=== PATIENT | female | born 1940 | race Caucasian/White ===

== ENCOUNTER 2017-04-27 16:07 | Observation (INO) ==
[2017-04-27] MEDS ORDERED: 0.9 % Sodium Chloride 1,000 ML IVC SCH (16:15)
[2017-04-27] MEDS ORDERED: 0.9 % Sodium Chloride 500 ML IVC ONE (16:15)
[2017-04-27] MEDS ORDERED: Ondansetron 4 MG/2 ML VIAL IVP ONE (16:15)
[2017-04-27] MEDS ORDERED: Pantoprazole 40 MG VIAL IVP ONE (16:15)
--- NOTE | 2017-04-27 16:17 | Emergency Department Note ---
Disposition Clinical Impression: Enteritis Abdominal pain Qualifiers: Abdominal location: lower abdomen, unspecified Qualified Code(s): R10.30 - Lower abdominal pain, unspecified Nausea & vomiting Qualifiers: Vomiting type: unspecified Vomiting Intractability: non-intractable Qualified Code(s): R11.2 - Nausea with vomiting, unspecified Disposition: Admitted As Inpatient Condition: Fair Referrals: Neeraj Cai DO [Primary Care Provider] - Forms: ED Satisfaction Letter Abdominal Pain HPI - General Chief Complaint: ED Nausea/Vomiting/Diarrhea Stated Complaint: abd pain and vomiting Time Seen by Provider: 04/27/17 16:15 Source: family, EMS Mode of arrival: EMS Limitations: altered mental status, physical limitation Nursing Notes Reviewed: Yes Vital Signs Reviewed: Yes - History of Present Illness HPI Narrative: Patient has reported and some low abdominal pain over the course today with intermittent nausea and vomiting. The vomiting has been worse if she is moved around. Family members were called by her grain operator at about 2 that she been having vomiting with some light green emesis. She had received some Zofran and slept for a while prior to arrival with apparently increasing lower abdominal pain, tenderness, moaning and "guarding". Her pain center her abdomen also seemed worse with motion. The patient has severe Alzheimer's and is not conversive [place] to give independent history at all. Her family states that she is never oriented. She has not had any recurrent trouble with her abdomen and only has history of a remote cholecystectomy. They suspect she might of had an appendectomy but they do not know for sure. They thought that she might have a urinary tract infection or possibly a viral gastroenteritis. Pt Subjective Complaint: abdominal pain Onset (ago): hour(s) (9) Consistency: intermittent, Worsening Location: LLQ, RLQ, suprapubic Pain Severity: moderate Quality: cannot describe Radiation: none Migration to: no migration Improves with: rest Worsens with: movement, other (Palpation) Associated symptoms: Reports: nausea, vomiting. Denies: diarrhea, fever, chills , constipation, dysuria, hematemesis, hematochezia, melena, hematuria, anorexia , syncope Treatments prior to arrival: none - Related Data Home Medications Medication Instructions Recorded Confirmed Atorvastatin [Lipitor] 40 mg PO HS 01/11/16 04/27/17 FLUoxetine HCl [Prozac] 40 mg PO DAILY 01/11/16 04/27/17 Memantine [Namenda] 10 mg PO BID 01/11/16 04/27/17 Metoprolol [Lopressor] 50 mg PO BID 01/11/16 04/27/17 RisperiDONE [Risperidone Odt] 0.25 mg PO HS 01/11/16 04/27/17 Rivastigmine Patch [Exelon] 13.3 mg TD DAILY 01/11/16 04/27/17 Allergies Allergy/AdvReac Type Severity Reaction Status Date / Time acetaminophen [From [place]] Allergy See Verified 04/22/16 16:08 Comments codeine Allergy See Verified 04/22/16 16:08 Comments hydrocodone [From [place]] Allergy See Verified 04/22/16 16:08 Comments Oxycodone [From Percocet] Allergy See Verified 04/22/16 16:08 Comments Paroxetine [From Paxil] Allergy See Verified 04/22/16 16:08 Comments pregabalin [From Lyrica] Allergy See Verified 04/22/16 16:08 Comments Limitations: ROS unobtainable due to patients medical condition Abdominal Pain PMH - Past Medical History Medical history: Reports: cancer, dementia, diabetes, hyperlipidemia, hypertension Female Surgical History: Reports: breast surgery, cholecystectomy Psychiatric history: Reports: anxiety - Social History Smoking status: Never smoker Alcohol use: Reports: none Drug use: Reports: none Physical Exam - General Limitations: altered mental status, age, other (Severe Alzheimer's dementia) General appearance: alert, anxious, in distress - Head Head exam: atraumatic, normocephalic, normal inspection - Eye Eye exam: Present: normal appearance, PERRL, EOMI. Absent: scleral icterus, conjunctival injection - ENT ENT exam: normal exam, normal oropharynx, mucous membranes moist - Neck Neck exam: Present: normal inspection, full ROM, trachea midline - Chest Chest inspection: Present: normal inspection, symmetric chest wall rise - Respiratory Respiratory exam: Present: normal lung sounds bilaterally. Absent: respiratory distress, wheezes, prolonged expiratory phase - Cardiovascular Cardiovascular exam: Present: regular rate, normal rhythm, normal heart sounds. Absent: tachycardia - Abdominal Exam Abdominal exam: Present: guarding (Across the lower abdomen), diminished bowel sounds, tenderness at [place]Bur[place]'s Point. Absent: distention, rebound, rigidity, Peralta's sign, hernia Abdominal tenderness: Present: RLQ, LLQ, suprapubic, moderate - Extremities Exam Extremities exam: Present: normal inspection, full ROM, normal capillary refill. Absent: tenderness, pedal edema - Expanded Lower Extremity Exam Neurovascular/Tendon exam: Present: normal capillary refill. Absent: motor deficit, sensory deficit, tendon deficit Gait: not tested/not observed - Neurological Exam Neurological exam: Absent: alert, oriented X3 - Psychiatric Psychiatric exam: Present: agitated, anxious - Skin Skin exam: Present: warm, dry, intact, normal color. Absent: diaphoresis, pallor Course Course Narrative: 1739: All testing has been discussed with the family. She continues moaning with some pain but without vomiting. I believe she will need continued observation and hydration and administration of pain medication. She has been written for a dose of 0.5 mg of Dilaudid for pain. She will not be able to be discharged to home at this time but she is also not obstructed, perforated or otherwise surgical. I believe she can be initially observed at this facility. I discussed CODE STATUS with the family and they would like her to remain a full code at this time. I also discussed her presentation and evaluation with Dr. Murtaza Flaherty. He is given verbal orders for her observation had more coordinate her further care. Vital Signs Temperature 98.8 F 04/27/17 16:11 Pulse Rate 82 04/27/17 16:11 Respiratory Rate 18 04/27/17 16:11 Blood Pressure 147/85 04/27/17 16:11 O2 Sat by Pulse Oximetry 97 04/27/17 16:11 Temperature 98.8 F 04/27/17 16:11 Pulse Rate 78 04/27/17 17:03 Respiratory Rate 18 04/27/17 17:03 Blood Pressure 158/97 04/27/17 17:03 O2 Sat by Pulse Oximetry 98 04/27/17 17:03 Oxygen Delivery Oxygen Delivery Room Air Abdominal Pain - Differential Diagnosis Differential Diagnosis: Likely: abdominal pain non-specific, acute appendicitis , calculus of kidney, constipation, colonic obstruction, diverticulitis, diverticulosis, gastroenteritis, ischemic bowel, small bowel obstruction - Medical Records Medical records reviewed: Yes I reviewed the patient's medical records. - Lab Data Lab results reviewed: Yes I reviewed the patient's lab results. Result diagrams: 04/27/17 16:27 04/27/17 16:27 Lab Results 04/27/17 04/27/17 04/27/17 Range/Units 16:27 16:27 16:40 WBC 9.2 (4.3-11.1) K/mcL RBC 3.77 L (3.82-4.97) M/mcL Hgb 11.9 (11.5-15.4) g/dL Hct 34.7 L (35.3-44.9) % MCV 92.0 (83.0-100.0) fL MCH 31.6 (28.0-33.3) pg MCHC 34.3 (31.6-35.5) g/dL RDW 11.9 (11.5-14.5) % Plt Count 205 (140-400) K/mcL MPV 12.4 (9.4-12.4) fL Immature Gran % 0.4 (0-4) % Seg Neutrophils % 83.6 % Lymphocytes % 9.3 % Monocytes % 6.3 % Eosinophils % 0.1 % Basophils % 0.3 % Neutrophils # 7.7 (1.6-8.9) K/mcL Lymphocytes # 0.9 (0.6-4.6) K/mcL Monocytes # 0.6 (0.0-1.3) K/mcL Eosinophils # 0.0 (0.0-0.6) K/mcL Basophils # 0.0 (0.0-0.2) K/mcL Sodium 142 (136-145) mEq/L Potassium 3.4 L (3.5-4.5) mEq/L Chloride 108 (98-109) mEq/L Carbon Dioxide 21 (19-29) mEq/L BUN 12 (7-20) mg/dL Creatinine 0.64 (0.57-1.11) mg/dL Est GFR ( Amer) > 60 (> 60) Est GFR (Non-Af Amer) > 60 (> 60) BUN/Creatinine Ratio 19 (6-26) Glucose 144 H (70-99) mg/dL Calculated Osmolality 296 (280-300) Calcium 8.7 (8.6-10.8) mg/dL Total Bilirubin 0.7 (0.2-1.2) mg/dL Direct Bilirubin 0.3 (0.0-0.5) mg/dL Indirect Bilirubin 0.4 (0.0-1.2) mg/dL AST 19 (5-34) Units/L ALT 11 (0-55) Units/L Alkaline Phosphatase 79 (38-126) Units/L Serum Total Protein 6.1 (6.0-8.3) g/dL Albumin 3.3 L (3.5-5.0) g/dL Globulin 2.8 (2.4-3.5) g/dL Albumin/Globulin Ratio 1.2 (1.1-2.2) Amylase 71 (25-125) Units/L Lipase 8 (8-78) Units/L Urine Color Yellow (Yellow) Urine Clarity Clear (Clear) Urine pH 7.5 (5.0-8.0) pH Units Ur Specific [place] 1.025 (1.010-1.025) Urine Protein 100 H (Neg-Trace) mg/dL Urine Glucose (UA) Normal (Normal) mg/dL Urine Ketones Negative (Negative) mg/dL Urine Blood Small H (Negative) Urine Nitrite Negative (Negative) Urine Bilirubin Negative (Negative) Urine Urobilinogen Normal (Normal) mg/dL Ur Leukocyte Esterase Negative (Negative) Urine Microscopic RBC 3-5 H (0-3) per hpf Urine Microscopic WBC Test Not Performed Urine Bacteria Few (None-Few) per hpf Hyaline Casts Few (None-Few) per lpf Urine Mucus Few (Few) Ur Culture Indicated? NO (NO) - Radiology Data Radiology results reviewed: Yes I reviewed the patient's radiology results. Impressions Abdomen/Pelvis CT 04/27/17 16:15 IMPRESSION: 1. Question mural thickening of the small bowel in the pelvis, greater on the right, raise the possibility of enteritis (inflammatory, infectious, or ischemic). However, the small bowel is not well evaluated, given the lack of intravenous and oral contrast, and given the lack of intraperitoneal fat. 2. Diverticulosis of the large bowel, without convincing CT evidence of diverticulitis. 3. Possible cystic lesion within the body of the pancreas. After resolution of acute symptoms, dedicated pancreatic CT with contrast could be performed to better evaluate this. D/ / Tima Thakkar MD / Tima Thakkar MD Interpreting Provider: Tima Thakkar MD
[2017-04-27 16:44] LABS: Basophils % 0.3 %; Eosinophils % 0.1 %; Hematocrit 34.7 % (35.3-44.9); Hemoglobin 11.9 g/dL (11.5-15.4); Immature Granulocytes % 0.4 % (0-4); Lymphocytes # 0.9 K/mcL (0.6-4.6); Lymphocytes % 9.3 %; Mean Corpuscular HGB Conc 34.3 g/dL (31.6-35.5); Mean Corpuscular Hemoglobin 31.6 pg (28.0-33.3); Mean Platelet Volume 12.4 fL (9.4-12.4); Monocytes # 0.6 K/mcL (0.0-1.3); Monocytes % 6.3 %; Neutrophils # 7.7 K/mcL (1.6-8.9); Platelet Count 205 K/mcL (140-400); Red Blood Count 3.77 M/mcL (3.82-4.97); Red Cell Distribution Width 11.9 % (11.5-14.5); Segmented Neutrophils % 83.6 %
[2017-04-27 16:47] LABS: Bilirubin,Urine Negative (Negative); Blood,Urine Small (Negative); Clarity,Urine Clear (Clear); Color,Urine Yellow (Yellow); Glucose,Urine (UA) Normal (Normal); Ketones,Urine Negative (Negative); Leukocyte Esterase,Urine Negative (Negative); Nitrite,Urine Negative (Negative); PH,Urine 7.5 pH Units (5.0-8.0); Protein,Urine 100 mg/dL (Neg-Trace); Specific Gravity,Urine 1.025 (1.010-1.025); Urobilinogen,Urine Normal (Normal)
[2017-04-27 16:57] LABS: Bacteria,Urine Few per hpf (None-Few); Hyaline Casts,Urine Few per lpf (None-Few); Mucus,Urine Few (Few)
[2017-04-27 17:03] LABS: Alanine Aminotransferase 11 Units/L (0-55); Albumin 3.3 g/dL (3.5-5.0); Albumin/Globulin Ratio 1.2 (1.1-2.2); Alkaline Phosphatase 79 Units/L (38-126); Amylase 71 Units/L (25-125); Aspartate Amino Transferase 19 Units/L (5-34); BUN/Creatinine Ratio 19 (6-26); Bilirubin,Direct 0.3 mg/dL (0.0-0.5); Bilirubin,Indirect 0.4 mg/dL (0.0-1.2); Bilirubin,Total 0.7 mg/dL (0.2-1.2); Blood Urea Nitrogen 12 mg/dL (7-20); Calcium 8.7 mg/dL (8.6-10.8); Carbon Dioxide 21 mEq/L (19-29); Chloride 108 mEq/L (98-109); Globulin 2.8 g/dL (2.4-3.5); Glucose 144 mg/dL (70-99); Lipase 8 Units/L (8-78); Osmolality,Calculated 296 (280-300); Potassium 3.4 mEq/L (3.5-4.5); Sodium 142 mEq/L (136-145); Total Protein 6.1 g/dL (6.0-8.3); eGFR For African Americans > 60 (> 60); eGFR For Non-African Americans > 60 (> 60)
[2017-04-27] MEDS ORDERED: *HR* HYDROmorphone (PF) 1 MG/ML SYRINGE IVP ONE (17:41)
[2017-04-27] MEDS ORDERED: *HR* Labetalol 20 MG/4 ML SYRINGE IVP ONE (19:14)
[2017-04-27] MEDS ORDERED: Ondansetron 4 MG/2 ML VIAL IVP PRN (20:20)
[2017-04-27] MEDS ORDERED: Naloxone 0.4 MG/ML INJ IVP PRN (20:20)
[2017-04-27] MEDS ORDERED: *HR* Labetalol 20 MG/4 ML SYRINGE IVP PRN (21:20)
[2017-04-27] MEDS: 0.9 % Sodium Chloride 1,000 ML IVC SCH (21:31)
[2017-04-27] MEDS: risperiDONE 0.25 MG TABLET PO SCH (21:31)
[2017-04-27] MEDS: Mirtazapine 15 MG TABLET PO SCH (21:31)
[2017-04-27] MEDS: *HR* HYDROmorphone (PF) 1 MG/ML SYRINGE IVP PRN (23:46)
[2017-04-28] MEDS: 0.9 % Sodium Chloride 1,000 ML IVC SCH ×3 (01:57→13:25)
[2017-04-28] MEDS: Pantoprazole 40 MG VIAL IVP SCH (09:21)
--- NOTE | 2017-04-28 10:06 | Internal Med History&Physical ---
Date of Encounter: 04/28/17 Time of Encounter: 10:03 Assessment and Plan (1) Enteritis Current visit: Yes Status: Acute Pt with non-specific small bowel wall thickening on CT scan, infectious vs inflammatory vs ischemic. She remains moderately symptomatic with abdominal pain and nausea. Will provide emperic antibiotic coverage and send a lactic acid. Will proceed with supportive care with anti-emetics and IV fluids for now. (2) Pancreatic cyst Current visit: No Status: Acute Cystic lesion of pancreas noted on CT. Further evaluation not likely warranted given advanced dementia, but family wishes discuss further with PCP. No inpatient evaluation warranted at this time. (3) Abdominal pain Current visit: Yes Status: Acute Non-surgical abdomen. Will treat enteritis and monitor. Qualifiers: Abdominal location: lower abdomen, unspecified Qualified Code(s): R10.30 - Lower abdominal pain, unspecified (4) Nausea & vomiting Current visit: Yes Status: Acute No evidence of bowel obstruction on CT. Will treat underlying enteritis and monitor. Qualifiers: Vomiting type: unspecified Vomiting Intractability: non-intractable Qualified Code(s): R11.2 - Nausea with vomiting, unspecified (5) Dementia Current visit: No Status: Chronic Stable and at baseline. Will continue current outpatient regimen and monitor. Family wishes pt to remain full code. Qualifiers: Dementia type: Alzheimer's disease Alzheimer's disease onset: late-onset Dementia behavioral disturbance: without behavioral disturbance Qualified Code (s): G30.1 - Alzheimer's disease with late onset; F02.80 - Dementia in other diseases classified elsewhere without behavioral disturbance Internal Medicine - H&P: HPI Chief complaint: abdominal pain Admitted From: Emergency Dept Plans for Post Hospital Care: Home History of present illness: Ms. Hurtado is a 76 year old female with severe dementia that currently resides in nursing home that was transported to ED yesterday in the AM after have a few episodes of bilious emesis and abdominal pain overnight. Pt was previously feeling well and at baseline. No fevers or chills. BMs have been reported normal. Patient is unable to provide any history secondary to cognitive impairment. Overnight, pt has been doing fairly well without acute events. She did have an episode of bilious emesis this AM. Mental status at baseline. Pt unable to provide history. Past Med Surg Social Fam HX - Past Medical History Medical history: cancer, dementia, diabetes, hyperlipidemia, hypertension Psychiatric history: anxiety - Past Surgical History Surgical History: breast surgery, cholecystectomy, other - Social History Smoking Status: Never smoker Smokeless Tobacco Status: No Alcohol use: none Drug use: none - Family History Father Living Status: Hx Family Cancer: Yes Mother Living Status: Hx Family Cardiac Disorders: Yes Internal Medicine - H&P: Meds Atorvastatin [Lipitor] 40 mg PO HS 01/11/16 [History] FLUoxetine HCl [Prozac] 40 mg PO DAILY 01/11/16 [History] Memantine [Namenda] 10 mg PO BID 01/11/16 [History] Metoprolol [Lopressor] 50 mg PO BID 01/11/16 [History] RisperiDONE [Risperidone Odt] 0.25 mg PO HS 01/11/16 [History] Rivastigmine Patch [Exelon] 13.3 mg TD DAILY 01/11/16 [History] Mirtazapine [Remeron] 15 mg PO HS 04/27/17 [History] Allergies acetaminophen [From [place]] Allergy (Verified 04/22/16 16:08) See Comments codeine Allergy (Verified 04/22/16 16:08) See Comments hydrocodone [From [place]] Allergy (Verified 04/22/16 16:08) See Comments Oxycodone [From Percocet] Allergy (Verified 04/22/16 16:08) See Comments Paroxetine [From Paxil] Allergy (Verified 04/22/16 16:08) See Comments pregabalin [From Lyrica] Allergy (Verified 04/22/16 16:08) See Comments ROS unobtainable: other (due to severe cognitive impairment) - Constitutional Vitals: Temp Pulse Resp BP Pulse Ox 98.5 F 69 18 146/75 96 04/28/17 06:26 04/28/17 06:26 04/28/17 06:26 04/28/17 06:26 04/28/17 06:26 Exam: Gen: Lying in bed, NAD HEENT: NC, AT Neck: Trachea midline, no mass Pulm: No respiratory distress, CTAB CV: Normal S1 and S2, RRR Abdomen: Soft, ND, appeared mildly tender throughout without rebound or guarding , BS normal Ext: No C/C/E Neuro: No appreciable motor/sensor deficits Skin: Warm and dry, no rash Psych: A&Ox0 Internal Med - H&P Results - Labs CBC & Chem 7: 04/27/17 16:27 04/27/17 16:27
[2017-04-28] MEDS ORDERED: *HR* Promethazine 25 MG/ML VIAL IVP PRN (10:32)
[2017-04-28] MEDS: metroNIDAZOLE 500 MG TABLET PO SCH ×3 (11:02→20:15)
[2017-04-28] MEDS: Rivastigmine Patch 9.5 MG PATCH.TD24 TD SCH (11:11)
[2017-04-28] MEDS: *HR* LORazepam 0.5 MG TABLET PO PRN (17:39)
[2017-04-28] MEDS: Mirtazapine 15 MG TABLET PO SCH (20:15)
[2017-04-28] MEDS: risperiDONE 0.25 MG TABLET PO SCH (20:15)
[2017-04-29] MEDS: *HR* LORazepam 0.5 MG TABLET PO PRN (01:08)
[2017-04-29] MEDS: 0.9 % Sodium Chloride 1,000 ML IVC SCH (01:08)
[2017-04-29] MEDS: *HR* HYDROmorphone (PF) 1 MG/ML SYRINGE IVP PRN (03:49)
[2017-04-29 06:40] LABS: Basophils % 0.3 %; Eosinophils # 0.3 K/mcL (0.0-0.6); Eosinophils % 3.6 %; Hematocrit 33.2 % (35.3-44.9); Hemoglobin 11.1 g/dL (11.5-15.4); Immature Granulocytes % 0.2 % (0-4); Lymphocytes % 20.8 %; Mean Corpuscular HGB Conc 33.4 g/dL (31.6-35.5); Mean Corpuscular Hemoglobin 32.1 pg (28.0-33.3); Mean Platelet Volume 12.2 fL (9.4-12.4); Monocytes % 10.9 %; Platelet Count 178 K/mcL (140-400); Red Blood Count 3.46 M/mcL (3.82-4.97); Red Cell Distribution Width 12.1 % (11.5-14.5); Segmented Neutrophils % 64.2 %
[2017-04-29 07:03] LABS: Albumin 2.9 g/dL (3.5-5.0); BUN/Creatinine Ratio 16 (6-26); Blood Urea Nitrogen 10 mg/dL (7-20); Calcium 8.7 mg/dL (8.6-10.8); Carbon Dioxide 23 mEq/L (19-29); Chloride 111 mEq/L (98-109); Glucose 84 mg/dL (70-99); Osmolality,Calculated 296 (280-300); Phosphorous 1.8 mg/dL (2.3-4.7); Potassium 3.2 mEq/L (3.5-4.5); Sodium 144 mEq/L (136-145); eGFR For African Americans > 60 (> 60); eGFR For Non-African Americans > 60 (> 60)
[2017-04-29] MEDS: Rivastigmine Patch 9.5 MG PATCH.TD24 TD SCH (09:48)
[2017-04-29] MEDS: Pantoprazole 40 MG VIAL IVP SCH (09:51)
[2017-04-29] MEDS: metroNIDAZOLE 500 MG TABLET PO SCH (09:55)
[2017-04-29] MEDS ORDERED: Potassium Chloride Elixir 20 MEQ/15 ML UDC PO ONE (10:21)
--- NOTE | 2017-04-29 11:23 | Discharge Summary ---
Date of Encounter: 04/29/17 Time of Encounter: 11:15 - Discharge Diagnosis (1) Enteritis Priority: Primary Status: Acute - Discharge Medications Prescriptions: metroNIDAZOLE [Flagyl] 500 mg PO TID #6 tab Home Medications: Atorvastatin [Lipitor] 40 mg PO HS 01/11/16 [History] FLUoxetine HCl [Prozac] 40 mg PO DAILY 01/11/16 [History] Memantine [Namenda] 10 mg PO BID 01/11/16 [History] Metoprolol [Lopressor] 50 mg PO BID 01/11/16 [History] RisperiDONE [Risperidone Odt] 0.25 mg PO HS 01/11/16 [History] Rivastigmine Patch [Exelon] 13.3 mg TD DAILY 01/11/16 [History] Mirtazapine [Remeron] 15 mg PO HS 04/27/17 [History] metroNIDAZOLE [Flagyl] 500 mg PO TID #6 tab 04/29/17 [Rx] Allergies/Adverse Reactions: Allergies acetaminophen [From [place]] Allergy (Verified 04/22/16 16:08) See Comments codeine Allergy (Verified 04/22/16 16:08) See Comments hydrocodone [From [place]] Allergy (Verified 04/22/16 16:08) See Comments Oxycodone [From Percocet] Allergy (Verified 04/22/16 16:08) See Comments Paroxetine [From Paxil] Allergy (Verified 04/22/16 16:08) See Comments pregabalin [From Lyrica] Allergy (Verified 04/22/16 16:08) See Comments Date of admission: 04/27/17 20:08 Primary care physician: Neeraj Cai DO - Patient Status Disposition: Home, Self-Care Condition: Fair Overall status at discharge: patient is progressing back to baseline - Discharge Instructions Follow Up With: Neeraj Cai DO [Primary Care Provider] - 1 week - Diet and Activity Activity: resume usual activities as tolerated Diet: advance to your usual diet Hospital course: Ms. Hurtado is a 76 year old female who presented to emergency room April 27 with abdominal pain and vomiting. Evaluation showed probable acute gastroenteritis. There was a question of 1.5 cm pancreatic cyst seen on abdominal CT scan. She was [facility] for ongoing care needs. Initial orders were written by the emergency room physician. Dr. Murtaza Flaherty saw her on April 28 and performed the history and physical. I assumed care on April 29. She had no vomiting the last 24 hours of hospitalization. WBC was normal on April 29 with resolution of the left shift seen on differential. Her potassium decreased to 3.2 on day of discharge and she was given replacement dose of KCl elixir. Her PCP can monitor follow-up labs as needed. When I saw her April 29 family felt she was near baseline and felt she was stable for discharge back to her group residential. She will follow with her PCP. She will continue with oral Flagyl for 2 additional days. - Time Spent with Patient Total time spent providing and/or coordinating discharge services: - Constitutional Vitals: Temp Pulse Resp BP Pulse Ox 98.4 F 50 18 151/74 96 04/29/17 06:27 04/29/17 06:27 04/29/17 06:27 04/29/17 06:27 04/29/17 06:27
[2017-04-29 11:30] VITALS: BP 142/79
== END 2017-04-29 12:20 | disposition home or self-care (01) ==
LOC: INPPIK 16:07 → EMEROOPIK 16:07 → INPPIK 20:10
PROVIDERS: ADMIT Internal Medicine; ATTEND Internal Medicine